=== PATIENT | male | born 1950 | race Caucasian/White ===

== ENCOUNTER → 2017-04-24 | Outpatient (CLI) | payer MEDICARE ==
[~2017-04-24] MED LIST: Percocet 10-321 EACH PO
[2017-04-24 17:11] LABS: Percent Saturation 71.5 % (20.0-50.0)
== END ==
LOC: LAB SHORT 16:18
PROVIDERS: Internal Medicine Hematology & Oncology
DX: E83.118 Other hemochromatosis (principal)
CPT/HCPCS: 82728; 83540; 83550

== ENCOUNTER → 2017-10-13 | Outpatient (CLI) | payer MEDICARE ==
[2017-10-13 18:17] LABS: Alanine Aminotransfer (ALT/SGP 32 U/L (12-78); Albumin/Globulin Ratio 1.7 (0.8-1.8); Alk Phos 70 U/L (50-136); Anion Gap 6 mmol/L (6-16); Aspartate Aminotrans (AST/SGOT 20 U/L (12-37); Bilirubin, Total 0.8 mg/dL (0.1-1.0); Blood Urea Nitrogen 15 mg/dL (8-24); Bun/Creatinine Ratio 20.1 (12.0-20.0); CHOL/HDL RATIO 2.7; CO2, Blood 30 mmol/L (21-32); Calcium, Blood 8.6 mg/dL (8.5-10.1); Chloride, Blood 106 mmol/L (98-108); Cholesterol 130 mg/dL (50-200); Creatinine, Blood 0.75 mg/dL (0.60-1.20); Globulin, Blood 2.3 g/dL (2.2-4.0); Glomerular Filtration Rate >60 (60-); Glucose, Blood 98 mg/dL (70-99); HDL Cholesterol 48 mg/dL (>39); LDL/HDL RATIO 1.4; Low Density Lipoprotein Chol 68 mg/dL (0-110); Potassium, Blood 4.5 mmol/L (3.5-5.5); Sodium, Blood 142 mmol/L (136-145); Total Protein, Blood 6.3 g/dL (6.4-8.2); Triglycerides 69 mg/dL (30-160); Very Low Density Lipoprot Chol 13 mg/dL (6-32)
[2017-10-13 18:27] LABS: Percent Saturation 88.4 % (20.0-50.0)
== END | disposition home or self-care (01) ==
LOC: LAB SHORT 11:00 → LAB 11:00
PROVIDERS: Internal Medicine Hematology & Oncology
DX: Z12.5 Encounter for screening for malignant neoplasm of prostate (principal); E78.5 Hyperlipidemia, unspecified; E83.118 Other hemochromatosis
CPT/HCPCS: 80053; 80061; 82728; 83540; 83550; G0103

== ENCOUNTER → 2018-06-08 | Outpatient (CLI) | payer MEDICARE ==
[2018-06-08 16:48] LABS: Free Thyroxine 1.14 ng/dL (0.70-1.60)
[2018-06-08 17:16] LABS: Alanine Aminotransfer (ALT/SGP 65 U/L (12-78); Albumin, Blood 4.2 g/dL (3.4-5.0); Albumin/Globulin Ratio 1.7 (0.8-1.8); Alk Phos 89 U/L (50-136); Anion Gap 7 mmol/L (6-16); Aspartate Aminotrans (AST/SGOT 36 U/L (12-37); Bilirubin, Direct 0.3 mg/dL (0.0-0.3); Bilirubin, Total 1.3 mg/dL (0.1-1.0); Blood Urea Nitrogen 15 mg/dL (8-24); Bun/Creatinine Ratio 26.5 (12.0-20.0); CO2, Blood 28 mmol/L (21-32); Calcium, Blood 8.5 mg/dL (8.5-10.1); Chloride, Blood 106 mmol/L (98-108); Creatinine, Blood 0.57 mg/dL (0.60-1.20); Globulin, Blood 2.5 g/dL (2.2-4.0); Glomerular Filtration Rate >60 (60-); Glucose, Blood 66 mg/dL (70-99); Potassium, Blood 4.4 mmol/L (3.5-5.5); Sodium, Blood 141 mmol/L (136-145); Total Protein, Blood 6.7 g/dL (6.4-8.2)
== END | disposition home or self-care (01) ==
LOC: LAB SHORT 14:30 → LAB 14:30
PROVIDERS: Internal Medicine Hematology & Oncology
DX: E83.118 Other hemochromatosis (principal); R53.81 Other malaise; R53.83 Other fatigue
CPT/HCPCS: 80053; 82248; 84439; 84443

== ENCOUNTER 2018-08-22 11:35 | Emergency (ER) | payer MEDICARE ==
[~2018-08-22] VITALS: Ht 190.5 cm; Wt 88.5 kg
== END 2018-08-22 15:18 | disposition home or self-care (01) ==
LOC: ER 11:35
DX: S52.035A Nondisplaced fracture of olecranon process with intraarticular extension of left ulna, initial encounter for closed fracture (principal); W18.30XA Fall on same level, unspecified, initial encounter; Z88.1 Allergy status to other antibiotic agents; Z87.891 Personal history of nicotine dependence
CPT/HCPCS: 29105; 73080; 73110; 96372-59; 99283-25; J1170

== ENCOUNTER 2018-08-28 08:28 | Day surgery (SDC) | payer MEDICARE ==
[~2018-08-28] VITALS: Ht 190.5 cm; Wt 89.8 kg
[~2018-08-28 08:28] MED LIST changes: +ANAS1 PO; +CELE200 PO; +Depo-Testos200 MG/ML IM; +GLUCOSAMINE HC500 MG PO; +OSTEO BI-FLEX1 EACH PO; +OXYC10TA19 PO; +Oxycontin20 MG PO; +TELM40 PO; +TUMERIC PO
[2018-08-28] MEDS ORDERED: CITRACAL SOFT1 EACH PO (08:54)
[2018-08-28] MEDS ORDERED: Mag-Tab Sr84 MG PO (08:55)
[2018-08-28] MEDS ORDERED: MILK THISTLE140 MG PO (08:55)
--- NOTE | 2018-08-28 09:10 | NUR ---
History, Chart, Medications and Allergies reviewed before start of procedure. Patient confirms NPO status and agrees with scheduled surgery. Lungs clear T/O to Auscultation. Patient States Post-Procedure ride home has been arranged. Pre-Op teaching done. Pt verbalizes understanding.
--- NOTE | 2018-08-28 14:15 | NUR ---
ASSUMED PT CARE. DR. PEÑA AT BEDSIDE. ASSISTED DR. PEÑA WITH NERVE BLOCK TO LEFT ELBOW. PHOTOS X 2 TAKEN. PT TOLERATED WELL. PAIN IMPROVED TO 2/10. DISCHARGE INSTRUCTIONS GIVEN BY CAN IGLESIAS. PT GIVEN LEFT ARM SLING AND ICE PACK BY THIS RN. ASSISTED PT WITH DRESSING AND MODERATE ASSIST TO WHEELCHAIR. PT TO BRP WITH ASSIST WITHOUT DIFFICULTY.
== END 2018-08-28 14:45 | disposition home or self-care (01) ==
LOC: ORSCMMR 08:28 → ORD 09:30 → ORSCMMR 09:30
PROVIDERS: Orthopaedic Surgery
PROC: 0PSL04Z Reposition Left Ulna with Internal Fixation Device, Open Approach (ICD-10-PCS; principal; 2018-08-28 09:30)
DX: S52.035A Nondisplaced fracture of olecranon process with intraarticular extension of left ulna, initial encounter for closed fracture (principal); I10 Essential (primary) hypertension; Z79.899 Other long term (current) drug therapy
CPT/HCPCS: 73070; C1713; J0690; J2250; J2704; J3010; J7120

== ENCOUNTER → 2019-05-24 | Outpatient (CLI) | payer MEDICARE ==
[~2019-05-24] MED LIST changes: +CITRACAL SOFT1 EACH PO; +MILK THISTLE140 MG PO; +Mag-Tab Sr84 MG PO
== END | disposition home or self-care (01) ==
LOC: LAB SHORT 17:26 → LAB 17:26
DX: E83.118 Other hemochromatosis (principal)
CPT/HCPCS: 82728

== ENCOUNTER → 2021-08-19 | Outpatient (CLI) | payer MEDICARE ==
[2021-08-19 14:52] LABS: BASOPHILS ABSOLUTE AUTO 0.04 K/mm3 (0.00-0.23); BASOPHILS PERCENT AUTO 1 % (0-2); EOSINOPHILS ABSOLUTE AUTO 0.09 K/mm3 (0.00-0.68); EOSINOPHILS PERCENT AUTO 1 % (0-6); Hematocrit 46.8 % (37.0-53.0); Hemoglobin 16.9 g/dL (13.5-17.5); IMMATURE GRAN ABSOLUTE AUTO 0.01 K/mm3 (0.00-0.10); IMMATURE GRAN PERCENT AUTO 0 % (0-1); LYMPHOCYTES ABSOLUTE AUTO 1.83 K/mm3 (0.84-5.20); LYMPHOCYTES PERCENT AUTO 27 % (21-46); MONOCYTES ABSOLUTE AUTO 0.63 K/mm3 (0.16-1.47); MONOCYTES PERCENT AUTO 9 % (4-13); Mean Corpuscular HGB 35.3 pg (26.0-34.0); Mean Corpuscular HGB Conc 36.1 g/dL (31.5-36.5); Mean Corpuscular Volume 98 fL (80-100); NEUTROPHILS ABSOLUTE AUTO 4.23 K/mm3 (1.96-9.15); NEUTROPHILS PERCENT AUTO 62 % (41-73); Platelet Count 226 K/mm3 (150-400); RDW Coefficient Variation 12.5 % (11.7-14.2); RDW Standard Deviation 45.1 fL (35.1-46.3); Red Blood Cell Count 4.79 M/mm3 (4.30-5.90); White Blood Cell Count 6.83 K/mm3 (4.00-11.30)
[2021-08-19 14:54] LABS: Albumin, Blood 4.3 g/dL (3.4-5.0); Albumin/Globulin Ratio 1.7 (0.8-1.8); Bilirubin, Direct 0.4 mg/dL (0.0-0.3); Bilirubin, Indirect 1.2 mg/dL (0.1-0.7); Bilirubin, Total 1.6 mg/dL (0.1-1.0); Bun/Creatinine Ratio 29.1 (12.0-20.0); Calcium, Blood 8.9 mg/dL (8.5-10.1); Creatinine, Blood 0.69 mg/dL (0.60-1.20); Globulin, Blood 2.5 g/dL (2.2-4.0); Phosphorus, Blood 3.9 mg/dL (2.5-4.9); Potassium, Blood 4.5 mmol/L (3.5-5.5); Total Protein, Blood 6.8 g/dL (6.4-8.2)
== END | disposition home or self-care (01) ==
LOC: LAB SHORT 11:28 → LAB 11:28
PROVIDERS: Internal Medicine Hematology & Oncology
DX: E83.118 Other hemochromatosis (principal)
CPT/HCPCS: 80053; 80076; 82105; 83540; 83550; 84100; 85025

== ENCOUNTER → 2022-02-14 | Outpatient (CLI) | payer MEDICARE ==
[2022-02-14 19:33] LABS: Thyroid Stimulating Hormone 0.714 uIU/mL (0.360-4.800); Thyroxine (T4) 9.4 ug/dL (4.5-12.1)
== END | disposition home or self-care (01) ==
LOC: LAB SHORT 18:46 → LAB 18:46
PROVIDERS: Internal Medicine Hematology & Oncology
DX: R53.83 Other fatigue (principal)
CPT/HCPCS: 84436; 84443

== ENCOUNTER → 2022-04-26 | Outpatient (CLI) | payer MEDICARE ==
[2022-04-26 16:38] LABS: Albumin/Globulin Ratio 1.5 (0.8-1.8); Bilirubin, Direct 0.3 mg/dL (0.0-0.3); Bilirubin, Indirect 0.7 mg/dL (0.1-0.7); Bun/Creatinine Ratio 23.8 (12.0-20.0); Creatinine, Blood 0.72 mg/dL (0.60-1.20); Globulin, Blood 2.7 g/dL (2.2-4.0); Total Protein, Blood 6.7 g/dL (6.4-8.2)
== END | disposition home or self-care (01) ==
LOC: LAB SHORT 15:33
PROVIDERS: Internal Medicine Hematology & Oncology
DX: E83.118 Other hemochromatosis (principal); R07.9 Chest pain, unspecified
CPT/HCPCS: 80053; 82248; 82550; 82728; 83540; 84484

== ENCOUNTER → 2023-07-20 | Outpatient (CLI) | payer OTHER, MEDICARE | END | disposition home or self-care (01) | LOC: LAB 18:49 → LAB SHORT 18:49 | DX: C61 Malignant neoplasm of prostate (principal); R30.0 Dysuria | CPT/HCPCS: 87086 ==

== ENCOUNTER 2023-10-28 21:47 | Emergency (ER) | payer MEDICARE ==
[~2023-10-28] VITALS: Ht 185.4 cm; Wt 82.5 kg
[2023-10-29] MEDS ORDERED: FentaNYL Citrate 50 MCG/ML 2 ML Injection IV ONE ×2 (01:40→01:55)
[2023-10-29] MEDS ORDERED: NS 1,000 ML IV SCH (01:55)
[2023-10-29] MEDS ORDERED: Propofol 10mg/ml 20 ml Vial (Procedural) IV SCH (01:55)
[2023-10-29 03:30] VITALS: BP 121/73
== END 2023-10-29 04:15 | disposition home or self-care (01) ==
LOC: ER 21:47
DX: T84.021A Dislocation of internal left hip prosthesis, initial encounter (principal); Z87.891 Personal history of nicotine dependence; Z79.899 Other long term (current) drug therapy; Z88.1 Allergy status to other antibiotic agents
CPT/HCPCS: 27265; 73502; 96374; 99152; 99283; J2704; J3010; J7030

== ENCOUNTER → 2024-05-01 | Outpatient (CLI) | payer MEDICARE ==
[2024-05-02 11:07] LABS: U Amphetamine Screen Not Detected; U Barbituate Screen Not Detected; U Benzodiazapine Screen Not Detected; U Buprenorphine Screen Not Detected; U Cannabinoids Screen Not Detected; U Cocaine Screen Not Detected; U Methadone Screen Not Detected; U Methamphetamine Screen Not Detected; U Opiates Screen DETECTED; U Oxycodone Screen DETECTED; U Phencyclidine Screen Not Detected
== END | disposition home or self-care (01) ==
LOC: LAB 13:07 → LAB SHORT 13:07
PROVIDERS: Internal Medicine Hematology & Oncology
DX: C61 Malignant neoplasm of prostate (principal); Z79.899 Other long term (current) drug therapy

== ENCOUNTER → 2024-10-21 | Outpatient (CLI) | payer MEDICARE ==
[2024-10-21 16:35] LABS: BASOPHILS ABSOLUTE AUTO 0.02 K/mm3 (0.00-0.23); BASOPHILS PERCENT AUTO 0 % (0-2); EOSINOPHILS ABSOLUTE AUTO 0.03 K/mm3 (0.00-0.68); EOSINOPHILS PERCENT AUTO 1 % (0-6); Hematocrit 40.6 % (37.0-53.0); Hemoglobin 15.1 g/dL (13.5-17.5); IMMATURE GRAN ABSOLUTE AUTO 0.02 K/mm3 (0.00-0.10); IMMATURE GRAN PERCENT AUTO 0 % (0-1); LYMPHOCYTES ABSOLUTE AUTO 0.78 K/mm3 (0.84-5.20); LYMPHOCYTES PERCENT AUTO 13 % (21-46); MONOCYTES ABSOLUTE AUTO 0.58 K/mm3 (0.16-1.47); MONOCYTES PERCENT AUTO 10 % (4-13); Mean Corpuscular HGB Conc 37.2 g/dL (31.5-36.5); Mean Corpuscular Volume 96 fL (80-100); NEUTROPHILS ABSOLUTE AUTO 4.63 K/mm3 (1.96-9.15); NEUTROPHILS PERCENT AUTO 76 % (41-73); NRBC ABSOLUTE 0.00 K/mm3 (0.00-0.02); NRBC Auto 0.0 /100 WBC (0.0-0.2); Platelet Count 160 K/mm3 (150-400); RDW Coefficient Variation 11.8 % (11.7-14.2); RDW Standard Deviation 40.9 fL (35.1-46.3)
[2024-10-21 16:37] LABS: Alanine Aminotransfer (ALT/SGP 28.0 U/L (12-78); Albumin, Blood 4.3 g/dL (3.4-5.0); Albumin/Globulin Ratio 1.5 (0.8-1.8); Anion Gap 14.0 mmol/L (3-11); Aspartate Aminotrans (AST/SGOT 17.0 U/L (12-37); Bilirubin, Total 1.3 mg/dL (0.1-1.0); Blood Urea Nitrogen 21.0 mg/dL (8-24); CO2, Blood 27.0 mmol/L (21-32); Calcium, Blood 9.1 mg/dL (8.5-10.1); Chloride, Blood 102.0 mmol/L (98-108); Creatinine, Blood 0.71 mg/dL (0.60-1.20); Globulin, Blood 2.8 g/dL (2.2-4.0); Glucose, Blood 107.0 mg/dL (70-99); Potassium, Blood 4.3 mmol/L (3.5-5.5); Sodium, Blood 139.0 mmol/L (136-145); Total Protein, Blood 7.1 g/dL (6.4-8.2)
== END ==
LOC: LAB 16:23 → LAB SHORT 16:23
PROVIDERS: Family Medicine
DX: R10.9 Unspecified abdominal pain (principal)
CPT/HCPCS: 80053; 85025

== ENCOUNTER → 2025-01-30 | Outpatient (CLI) | payer MEDICARE ==
[2025-01-30 15:51] LABS: U Amphetamine Screen Not Detected; U Barbiturate Screen Not Detected; U Benzodiazapine Screen Not Detected; U Buprenorphine Screen Not Detected; U Cannabinoids Screen Not Detected; U Cocaine Screen Not Detected; U Methadone Screen Not Detected; U Methamphetamine Screen Not Detected; U Opiates Screen Not Detected; U Oxycodone Screen DETECTED; U Phencyclidine Screen Not Detected
== END | disposition home or self-care (01) ==
LOC: LAB 13:20 → LAB SHORT 13:20
PROVIDERS: Internal Medicine Hematology & Oncology
DX: C61 Malignant neoplasm of prostate (principal); Z79.899 Other long term (current) drug therapy